=== PATIENT | female | born 1990 | race American Indian/Alaskan Native ===

== ENCOUNTER 2016-10-15 11:51 | Emergency (ER) | payer MEDICAID ==
[2016-10-15] MEDS ORDERED: LACTATED RINGERS 500 ML IV ONE (12:00)
[2016-10-15 14:28] VITALS: BP 123/81
[2016-10-15] MEDS ORDERED: TYLENOL PO ONE (15:49)
[2016-10-15] MEDS ORDERED: TYLENOL ONE (15:54)
--- NOTE | 2016-10-15 16:05 | Emergency Department Report ---
Entered by JAMI GRANT, acting as scribe for DANIELLE GOTTLIEB PA. ED Lower Extremity HPI - General Chief Complaint: Extremity Injury, Lower Time Seen by Provider: 10/15/16 15:09 Source: patient Mode of arrival: Ambulatory Limitations: Physical Limitation - History of Present Illness Initial Comments: 26 year old that is 30 weeks presents to the ED c/o left groin pain that began this morning at 10:00. Patient states that she walking at her son's soon, slipped, and almost fell. She subsequently injured her left groin area. Notes she was sent to the ED by Labor and Delivery. Rates pain a 10/10 in severity, which worsens with bearing weight. Associated symptom include low pelvic pressure type pain, but she denies vaginal bleeding, chest pain, nausea, vomiting, fever, and chills. NKDA. ARCEO Complaint: fall -: This morning Time: 10:00 Injury: Pelvis: Left (groin area) Type of Injury: unknown Place: school (son's school) Severity: moderate Improves With: nothing Worsens With: weight bearing Other Symptoms: other (dizziness) Associated Symptoms: able to partially bear weight. denies: snap/pop sensation , swelling, numbness, tingling, other (fever, chills, nausea, vomiting, and vaginal bleeding) - Related Data Previous Rx's Medication Instructions Recorded Last Taken Type metroNIDAZOLE [Metrogel 1%] 1 applicatio TP QDAY #5 gel..gram. 09/22/13 Unknown Rx Acetaminophen [Acetaminophen ER 650 mg PO Q8HR PRN #30 tablet.er 10/15/16 Unknown Rx TAB] Allergies Allergy/AdvReac Type Severity Reaction Status Date / Time No Known Allergies Allergy Verified 10/15/16 12:00 ED Review of Systems Comment: All other systems reviewed and negative Constitutional: other (dizziness, but denies tingling). denies: chills, fever Respiratory: denies: cough, orthopnea, shortness of breath, SOB with exertion, SOB at rest, stridor Cardiovascular: denies: chest pain, dyspnea on exertion, orthopnea Gastrointestinal: denies: abdominal pain, nausea, vomiting Genitourinary: denies: other (vaginal bleeding) Skin: denies: rash Neurological: denies: headache, numbness ED Past Medical Hx - Past Medical History Hx Hypertension: Yes Hx Diabetes: No Hx Deep Vein Thrombosis: No Hx Renal Disease: No Hx Sickle Cell Disease: No Hx Seizures: No Hx Asthma: Yes (as a child) Hx HIV: No - Surgical History Past Surgical History?: No - Social History Smoking Status: Never Smoker Substance Use Type: None - Medications Home Medications: Home Medications Medication Instructions Recorded Confirmed Last Taken Type metroNIDAZOLE [Metrogel 1%] 1 applicatio TP QDAY #5 gel..gram. 09/22/13 Unknown Rx Acetaminophen [Acetaminophen ER 650 mg PO Q8HR PRN #30 tablet.er 10/15/16 Unknown Rx TAB] ED Physical Exam - General Limitations: Physical Limitation General appearance: alert, in no apparent distress - Head Head exam: Present: atraumatic, normocephalic - Eye Eye exam: Present: normal appearance, EOMI Pupils: Present: normal accommodation - ENT ENT exam: Present: normal exam, mucous membranes moist - Neck Neck exam: Present: normal inspection, full ROM - Respiratory Respiratory exam: Present: normal lung sounds bilaterally. Absent: respiratory distress, wheezes, rales, rhonchi, stridor - Cardiovascular Cardiovascular Exam: Present: regular rate, normal rhythm. Absent: systolic murmur, diastolic murmur, rubs, gallop - GI/Abdominal GI/Abdominal exam: Present: soft, distended, normal bowel sounds. Absent: tenderness, guarding, rebound - Extremities Exam Extremities exam: Present: normal inspection, full ROM - Back Exam Back exam: Present: normal inspection, full ROM - Neurological Exam Neurological exam: Present: alert, oriented X3 - Psychiatric Psychiatric exam: Present: normal affect, normal mood - Skin Skin exam: Present: warm, dry, intact. Absent: rash, ecchymosis ED Course Vital Signs 10/15/16 10/15/16 10/15/16 12:08 12:13 12:18 Temperature Pulse Rate 98 H 94 H 95 H Pulse Rate [ From Monitor] Respiratory Rate Blood Pressure 112/74 Blood Pressure [Left Arm] Blood Pressure [Right] O2 Sat by Pulse 98 99 98 Oximetry 10/15/16 10/15/16 10/15/16 12:22 12:23 12:24 Temperature 97 F L Pulse Rate 91 H 93 H Pulse Rate [ 89 From Monitor] Respiratory 20 Rate Blood Pressure 110/75 Blood Pressure 112/74 [Left Arm] Blood Pressure [Right] O2 Sat by Pulse 98 Oximetry 10/15/16 10/15/16 10/15/16 12:28 12:33 12:34 Temperature Pulse Rate 84 87 95 H Pulse Rate [ From Monitor] Respiratory Rate Blood Pressure Blood Pressure [Left Arm] Blood Pressure [Right] O2 Sat by Pulse 100 100 64 L Oximetry 10/15/16 10/15/16 10/15/16 12:41 12:46 12:51 Temperature Pulse Rate 97 H 82 82 Pulse Rate [ From Monitor] Respiratory Rate Blood Pressure Blood Pressure [Left Arm] Blood Pressure [Right] O2 Sat by Pulse 98 100 99 Oximetry 10/15/16 10/15/16 14:19 16:00 Temperature 98.2 F Pulse Rate 74 Pulse Rate [ From Monitor] Respiratory 20 18 Rate Blood Pressure 123/81 Blood Pressure [Left Arm] Blood Pressure 123/81 [Right] O2 Sat by Pulse 100 Oximetry ED Lower Extremity MDM - Medical Decision Making 26-year-old female at 30 weeks gestation presents to the ED cleared by labor and delivery. Patient presents for almost falling earlier today. Patient denies any injury or trauma to her abdomen or arms or legs or anywhere else. Discussed patient to increase fluid intake to 8-10 glasses per day. Discussed patient to continue her vitamins and take Tylenol as needed for pain. Discussed if any new symptoms such as vaginal bleeding the can of fluids to return to labor and delivery. Costs adequate rest of the next couple days. Verbalization understands and will comply to follow up. Vital signs are normal she is in no acute distress ED Disposition Clinical Impression: Supervision of normal IUP (intrauterine ) in multigravida, Round ligament pain Disposition: DISCHARGED TO HOME OR SELFCARE Is pt being admited?: No Does the pt Need Aspirin: No Condition: Stable Instructions: Fall Prevention (ED) Additional Instructions: Follow up with their [facility] doctor. Take medication as prescribed. Increase fluids. Rest. Prescriptions: Acetaminophen [Acetaminophen ER TAB] 650 mg PO Q8HR PRN #30 tablet.er PRN Reason: Pain Referrals: PRIMARY CARE,MD [Primary Care Provider] - 3-5 Days Forms: Work/School Release Form Time of Disposition: 15:55 This documentation as recorded by the [facility] JASMINE,accurately reflects the service I personally performed and the decisions made by ,DANIELLE GOTTLIEB PA.
== END 2016-10-15 16:20 | disposition home or self-care (01) ==
LOC: TRG 11:51 → ED 11:51 → TRG 11:52 → ED 11:52 → TRG 11:52 → EDSTATUS 13:31 → TRG 15:57 → ED 16:20
DX: O26.893 Other specified pregnancy related conditions, third trimester (principal); R10.2 Pelvic and perineal pain; O16.3 Unspecified maternal hypertension, third trimester; O99.513 Diseases of the respiratory system complicating pregnancy, third trimester; Z3A.30 30 weeks gestation of pregnancy; W01.0XXA Fall on same level from slipping, tripping and stumbling without subsequent striking against object, initial encounter; Y93.01 Activity, walking, marching and hiking; Y99.8 Other external cause status; Y92.218 Other school as the place of occurrence of the external cause
CPT/HCPCS: 51701; 59025

== ENCOUNTER 2016-10-31 06:04 | Outpatient (CLI) | payer MEDICAID ==
[2016-10-31 07:56] VITALS: BP 135/75
[2016-10-31 07:59] LABS: Alanine Aminotransferase 30 units/L (7-56); Lactate Dehydrogenase 305 units/L (91-180); Uric Acid 5.2 mg/dL (3.5-7.6)
[2016-10-31] MEDS ORDERED: TYLENOL PO ONE (08:00)
[2016-10-31 08:02] LABS: Hematocrit 27.4 % (30.3-42.9); Hemoglobin 8.3 gm/dl (10.1-14.3); Mean Corpuscular HGB Conc 30 % (30-34); Mean Corpuscular Volume 78 fl (79-97); Red Blood Count 3.51 M/mm3 (3.65-5.03); Red Cell Distribution Width 16.9 % (13.2-15.2); White Blood Count 11.3 K/mm3 (4.5-11.0)
[2016-10-31 08:04] LABS: Mean Corpuscular Hemoglobin 24 pg (28-32)
[2016-10-31 08:05] LABS: Bilirubin,Urine NEG (Negative); Blood,Urine NEG (Negative); Ketones,Urine NEG (Negative); Leukocyte Esterase,Urine NEG (Negative); Mucus,Urine FEW /HPF; Nitrite,Urine NEG (Negative); Platelet Count 193 K/mm3 (140-440); Protein,Urine <15 mg/dL mg/dL (Negative); RBC,Urine < 1.0 /HPF (0.0-6.0); Urobilinogen,Urine < 2.0 mg/dL (<2.0); WBC,Urine < 1.0 /HPF (0.0-6.0)
[2016-10-31] MEDS ORDERED: FIORICET PO PRN (10:00)
== END 2016-10-31 11:27 | disposition home or self-care (01) ==
LOC: TRG 06:04
PROVIDERS: ATTEND Obstetrics & Gynecology
DX: O47.03 False labor before 37 completed weeks of gestation, third trimester (principal); Z3A.32 32 weeks gestation of pregnancy
CPT/HCPCS: 36415; 59025; 81001; 82565; 83615; 84450; 84460; 84550; 85027